=== PATIENT | female | born 1930 | race Caucasian/White ===

== ENCOUNTER 2017-10-05 15:10 | Inpatient (IN) | payer MEDICARE, OTHER ==
[2017-10-05] MEDS: SODIUM CHLORIDE 0.9% FLUSH 10 ML SOL IV SCH ×3 (16:00→23:36)
[2017-10-05] MEDS ORDERED: FUROSEMIDE 20mg SOL IV SCH (19:15)
[2017-10-05 20:16] LABS: ABO B; ANTIBODY SCREEN Negative; RH TYPE Negative; UNIT TYPE O NEGATIVE
[2017-10-05 20:57] LABS: UNIT TYPE O NEGATIVE
[2017-10-05] MEDS: SODIUM CHLORIDE 0.9% 500 ML 500 ML IV SCH (21:30)
[2017-10-05] MEDS ORDERED: APAP/HYDROCODONE 325/5 TAB PO PRN (21:53)
[2017-10-06] MEDS: SODIUM CHLORIDE 0.9% FLUSH 10 ML SOL IV SCH ×4 (02:29→19:14)
[2017-10-06 07:20] LABS: BASOPHILS % (AUTO) 2 % (0-3); EOSINOPHILS % (AUTO) 2 % (0-9); HEMATOCRIT 25 % (35-47); MEAN CORPUSCULAR HGB CONC 27.9 gm/dl (32.0-36.0); MONOCYTES % (AUTO) 11.6 % (0-12); NEUTROPHILS % (AUTO) 67.4 % (37-80)
[2017-10-06 07:26] LABS: ALBUMIN 2.1 gm/dl (3.4-5.0); CALCIUM 7.6 mg/dl (8.5-10.1); MEAN CORPUSCULAR VOLUME 61 fL (81-99); POTASSIUM 4.3 mMol/L (3.5-5.1)
[2017-10-06 07:43] LABS: ANISOCYTOSIS MOD AMT; OVALOCYTES PRESENT
[2017-10-06 07:44] LABS: HYPOCHROMASIA PRESENT
[2017-10-06 10:45] LABS: UNIT TYPE O NEGATIVE
[2017-10-06 10:46] LABS: UNIT TYPE B NEGATIVE
[2017-10-06] MEDS: SODIUM CHLORIDE 0.9% 500 ML 500 ML IV SCH (11:20)
[2017-10-06] MEDS: FUROSEMIDE 20mg SOL IV SCH ×2 (14:02→19:13)
[2017-10-07 07:41] LABS: BASOPHILS % (AUTO) 1 % (0-3); EOSINOPHILS % (AUTO) 2 % (0-9); HEMATOCRIT 30 % (35-47); MEAN CORPUSCULAR HGB CONC 30.5 gm/dl (32.0-36.0); MONOCYTES % (AUTO) 8.2 % (0-12); NEUTROPHILS % (AUTO) 70.8 % (37-80)
[2017-10-07 07:47] LABS: MEAN CORPUSCULAR VOLUME 64 fL (81-99)
[2017-10-07 07:51] LABS: CALCIUM 7.7 mg/dl (8.5-10.1); THYROID STIMULATING HORMONE 1.019 uIU/ml (0.358-3.740)
[2017-10-07 07:52] LABS: POTASSIUM 4.2 mMol/L (3.5-5.1)
[2017-10-07 08:22] LABS: HYPOCHROMASIA MOD AMT
[2017-10-07 08:23] LABS: ACANTHOCYTES PRESENT; ANISOCYTOSIS MOD AMT; OVALOCYTES PRESENT; TARGET CELLS PRESENT; TEAR DROP CELLS PRESENT
[2017-10-07] MEDS ORDERED: DOCUSATE SODIUM 100 MG SGL PO PRN (09:00)
[2017-10-07] MEDS: SODIUM CHLORIDE 0.9% FLUSH 10 ML SOL IV SCH ×3 (12:04→19:54)
[2017-10-08 00:17] VITALS: RESP 20; O2SAT 92
[2017-10-08] MEDS: SODIUM CHLORIDE 0.9% FLUSH 10 ML SOL IV SCH ×4 (03:20→14:57)
[2017-10-08 07:27] LABS: BASOPHILS % (AUTO) 2 % (0-3); EOSINOPHILS % (AUTO) 2 % (0-9); HEMATOCRIT 31 % (35-47); MEAN CORPUSCULAR HGB CONC 30.3 gm/dl (32.0-36.0)
[2017-10-08 07:31] LABS: CALCIUM 7.7 mg/dl (8.5-10.1)
[2017-10-08 07:36] LABS: MEAN CORPUSCULAR VOLUME 65 fL (81-99)
[2017-10-08 07:55] LABS: ANISOCYTOSIS MOD AMT; HYPOCHROMASIA PRESENT; OVALOCYTES PRESENT; TARGET CELLS PRESENT
[2017-10-08] MEDS: SODIUM CHLORIDE 0.9% 500 ML 500 ML IV SCH (08:01)
[2017-10-08 08:11] VITALS: BP 138/68; PULSE 80; TEMP 98.9
[2017-10-08] MEDS ORDERED: INFLUENZA HIGH DOSE VACCINE 0.5 ML SUS IM ONE (14:14)
== END 2017-10-08 15:30 | disposition home or self-care (01) | DRG 812 ==
LOC: ACUTE CARE 15:34
PROVIDERS: ADMIT Family Medicine; ATTEND Family Medicine
PROC: 30233N1 Transfusion of Nonautologous Red Blood Cells into Peripheral Vein, Percutaneous Approach (ICD-10-PCS; principal; 2017-10-06)
PROC: F01ZDFZ Gait and/or Balance Assessment using Assistive, Adaptive, Supportive or Protective Equipment (ICD-10-PCS; 2017-10-07)
PROC: F01ZCZZ Transfer Assessment (ICD-10-PCS; 2017-10-07)
PROC: F01ZBZZ Bed Mobility Assessment (ICD-10-PCS; 2017-10-07)
PROC: F02Z1ZZ Dressing Assessment (ICD-10-PCS; 2017-10-07)
PROC: F02Z0ZZ Bathing/Showering Assessment (ICD-10-PCS; 2017-10-07)
PROC: F02Z3ZZ Grooming/Personal Hygiene Assessment (ICD-10-PCS; 2017-10-07)
DX: D64.9 Anemia, unspecified (principal); R06.02 Shortness of breath; R93.8 Abnormal findings on diagnostic imaging of other specified body structures
CPT/HCPCS: 71260; 74177; 80048; 80053; 82272; 84443; 85018; 85025; 86850; 86900; 86901; 86920; 90662; 93306; 99070; J1940; Q9967; G0008

== ENCOUNTER 2017-10-19 13:49 | Outpatient (CLI) | payer MEDICARE, OTHER ==
[2017-10-08 00:17] VITALS: O2SAT 92
== END 2017-10-19 13:50 | disposition home or self-care (01) | DRG 554 ==
LOC: CONVCARE 13:49
PROVIDERS: ATTEND Orthopaedic Surgery
DX: M17.0 Bilateral primary osteoarthritis of knee (principal); M25.561 Pain in right knee; M25.562 Pain in left knee
CPT/HCPCS: 73562

== ENCOUNTER 2018-07-05 11:22 | Inpatient (IN) | payer MEDICARE, OTHER ==
[2018-07-05] MEDS ORDERED: VANCOMYCIN HCL 500 MG PDS 1,000 MG in SODIUM CHLORIDE 0.9% 250 ML 250 ML IV ONE (12:04)
[2018-07-05 12:25] LABS: BASOPHILS % (AUTO) 1 % (0-3); EOSINOPHILS % (AUTO) 1 % (0-9); HEMATOCRIT 32 % (35-47); HEMOGLOBIN 10.4 gm/dl (12.0-15.5); LYMPHOCYTES % (AUTO) 8.2 % (10-50); MEAN CORPUSCULAR HEMOGLOBIN 27.9 pg (27.0-32.0); MEAN CORPUSCULAR HGB CONC 32.6 gm/dl (32.0-36.0); MEAN CORPUSCULAR VOLUME 86 fL (81-99); MONOCYTES % (AUTO) 8.6 % (0-12); NEUTROPHILS % (AUTO) 81.3 % (37-80)
[2018-07-05 12:29] LABS: LACTIC ACID 1.6 mMol/L (0.0-2.0)
[2018-07-05 12:39] LABS: ALBUMIN 2.2 gm/dl (3.4-5.0); ALKALINE PHOSPHATASE 150 IU/L (46-116); ALT 38 IU/L (14-63); AST 29 IU/L (15-37); BILIRUBIN,TOTAL 0.5 mg/dl (0.2-1.0); BLOOD UREA NITROGEN 19 mg/dl (7-18); CALCIUM 8.3 mg/dl (8.5-10.1); CARBON DIOXIDE 26.7 mEq/L (21-32); CHLORIDE 100 mMol/L (98-107); CREATININE 1.07 mg/dl (0.60-1.00); GLUCOSE 123 mg/dl (74-106); POTASSIUM 3.1 mMol/L (3.5-5.1); SODIUM 135 mMol/L (136-145); TOTAL PROTEIN 6.7 gm/dl (6.4-8.2); TROP I < 0.017 ng/ml (0.000-0.056)
[2018-07-05] MEDS: SODIUM CHLORIDE 0.9% 1000ML 1,000 ML IV SCH (13:37)
[2018-07-05] MEDS ORDERED: VANCOMYCIN HYDROCHLORIDE 500 MG PDS IV ONE (13:38)
[2018-07-05] MEDS ORDERED: POTASSIUM CHLORIDE 10 MEQ TER PO ONE (15:31)
[2018-07-05] MEDS ORDERED: POTASSIUM CHLORIDE 10 MEQ TER ONE (16:29)
[2018-07-05] MEDS: ACETAMINOPHEN 325 MG PO PRN (17:18)
[2018-07-05] MEDS: KETOROLAC TROMETHAMINE 30 MG/ML SOL IV PRN (17:19)
[2018-07-05] MEDS ORDERED: ACETAMINOPHEN 500 MG 500 MG TAB PO PRN (17:43)
[2018-07-05] MEDS ORDERED: POTASSIUM CHLORIDE 10 MEQ TER PO SCH ×2 (17:45→21:00)
[2018-07-05] MEDS ORDERED: CEFTRIAXONE 1 GM PDS ONE (17:48)
[2018-07-05] MEDS ORDERED: SODIUM CHLORIDE 0.9% 50 ML 50 ML IV ONE (17:48)
[2018-07-05] MEDS ORDERED: ONDANSETRON HCL 4 MG/2 ML SOL IV PRN (17:56)
[2018-07-05] MEDS ORDERED: MORPHINE SULFATE 10 MG/ML SOL IV PRN (17:56)
[2018-07-05] MEDS: CEFTRIAXONE 1 GM PDS 1 GM in SODIUM CHLORIDE 0.9% 50 ML 50 ML IV SCH (18:00)
[2018-07-05] MEDS: OXYCODONE HYDROCHLORIDE 5 MG TAB PO PRN (18:07)
[2018-07-05] MEDS: ENOXAPARIN 30 MG SOL SC SCH (18:10)
[2018-07-05] MEDS ORDERED: OMEPRAZOLE 40 MG ECC PO SCH (21:00)
[2018-07-05] MEDS: ASPIRIN 325 MG TAB PO SCH (21:35)
[2018-07-05] MEDS: FERROUS GLUCONATE 324 MG TABLET PO SCH (21:35)
[2018-07-05] MEDS: SENNOSIDES A AND B 8.6 MG TAB PO SCH (21:36)
[2018-07-06] MEDS ORDERED: POTASSIUM CHLORIDE 10 MEQ TER PO SCH
[2018-07-06] MEDS: SODIUM CHLORIDE 0.9% 1000ML 1,000 ML IV SCH ×3 (04:20→16:10)
[2018-07-06] MEDS ORDERED: SODIUM CHLORIDE 0.9% 50 ML 50 ML IV ONE ×2 (05:59→17:04)
[2018-07-06] MEDS ORDERED: CEFTRIAXONE 1 GM PDS ONE ×2 (05:59→17:04)
[2018-07-06] MEDS: CEFTRIAXONE 1 GM PDS 1 GM in SODIUM CHLORIDE 0.9% 50 ML 50 ML IV SCH ×2 (06:05→18:07)
[2018-07-06] MEDS: OXYCODONE HYDROCHLORIDE 5 MG TAB PO PRN ×4 (06:57→22:53)
[2018-07-06 07:16] LABS: CARBON DIOXIDE 23.1 mEq/L (21-32); CREATININE 0.8 mg/dl (0.60-1.00); POTASSIUM 4.3 mMol/L (3.5-5.1)
[2018-07-06 07:23] LABS: BASOPHILS % (AUTO) 0 % (0-3); EOSINOPHILS % (AUTO) 1 % (0-9); HEMATOCRIT 31 % (35-47); HEMOGLOBIN 9.7 gm/dl (12.0-15.5); LYMPHOCYTES % (AUTO) 9.9 % (10-50); MEAN CORPUSCULAR HEMOGLOBIN 26.8 pg (27.0-32.0); MEAN CORPUSCULAR HGB CONC 31.2 gm/dl (32.0-36.0); MEAN CORPUSCULAR VOLUME 86 fL (81-99); MONOCYTES % (AUTO) 9.8 % (0-12); NEUTROPHILS % (AUTO) 78.8 % (37-80)
[2018-07-06] MEDS: LEVOTHYROXINE SODIUM 112 MCG TAB PO SCH (08:35)
[2018-07-06] MEDS ORDERED: SODIUM CHLORIDE 0.9% 250 ML 250 ML IV ONE ×2 (08:57→21:12)
[2018-07-06] MEDS ORDERED: VANCOMYCIN HYDROCHLORIDE 500 MG PDS IV ONE ×2 (08:57→21:12)
[2018-07-06] MEDS ORDERED: Non-Formulary Medication MISC (Levothyroxine Sodium 112 Mcg 112 MCG) PO SCH (09:00)
[2018-07-06] MEDS ORDERED: AMLODIPINE 5 MG TAB PO SCH (09:00)
[2018-07-06] MEDS: VANCOMYCIN HCL 500 MG PDS 1,000 MG in SODIUM CHLORIDE 0.9% 250 ML 250 ML IV SCH ×2 (09:05→21:18)
[2018-07-06] MEDS: ASPIRIN 325 MG TAB PO SCH ×2 (09:11→21:39)
[2018-07-06] MEDS: PANTOPRAZOLE SODIUM 40 MG ECT PO SCH (09:12)
[2018-07-06] MEDS: FERROUS GLUCONATE 324 MG TABLET PO SCH ×2 (09:12→21:39)
[2018-07-06] MEDS: SENNOSIDES A AND B 8.6 MG TAB PO SCH ×2 (09:13→21:40)
[2018-07-06] MEDS: ACETAMINOPHEN 325 MG PO PRN (15:51)
[2018-07-06] MEDS: ENOXAPARIN 30 MG SOL SC SCH (18:09)
[2018-07-06] MEDS: KETOROLAC TROMETHAMINE 30 MG/ML SOL IV PRN (19:53)
[2018-07-06] MEDS: SODIUM CHLORIDE 0.9% FLUSH 10 ML SOL IV SCH ×2 (19:56→21:22)
[2018-07-07] MEDS ORDERED: SODIUM CHLORIDE 0.9% 50 ML 50 ML IV ONE ×2 (04:49→18:14)
[2018-07-07] MEDS ORDERED: CEFTRIAXONE 1 GM PDS ONE ×2 (04:49→18:14)
[2018-07-07] MEDS: CEFTRIAXONE 1 GM PDS 1 GM in SODIUM CHLORIDE 0.9% 50 ML 50 ML IV SCH ×2 (05:41→18:45)
[2018-07-07] MEDS: SODIUM CHLORIDE 0.9% FLUSH 10 ML SOL IV SCH ×5 (05:42→20:35)
[2018-07-07] MEDS: LEVOTHYROXINE SODIUM 112 MCG TAB PO SCH (06:04)
[2018-07-07] MEDS: OXYCODONE HYDROCHLORIDE 5 MG TAB PO PRN ×4 (06:04→21:06)
[2018-07-07] MEDS ORDERED: VANCOMYCIN HYDROCHLORIDE 500 MG PDS IV ONE ×2 (07:50→20:09)
[2018-07-07] MEDS ORDERED: SODIUM CHLORIDE 0.9% 250 ML 250 ML IV ONE ×2 (07:51→20:09)
[2018-07-07] MEDS: VANCOMYCIN HCL 500 MG PDS 1,000 MG in SODIUM CHLORIDE 0.9% 250 ML 250 ML IV SCH ×2 (08:12→20:36)
[2018-07-07] MEDS: ASPIRIN 325 MG TAB PO SCH ×2 (08:22→20:37)
[2018-07-07] MEDS: FERROUS GLUCONATE 324 MG TABLET PO SCH ×2 (08:22→20:36)
[2018-07-07] MEDS: PANTOPRAZOLE SODIUM 40 MG ECT PO SCH (08:22)
[2018-07-07] MEDS: SENNOSIDES A AND B 8.6 MG TAB PO SCH ×2 (08:23→20:37)
[2018-07-07] MEDS: AMLODIPINE 5 MG TAB PO SCH (09:45)
[2018-07-07] MEDS: GABAPENTIN 100 MG CAP PO SCH ×2 (10:52→20:36)
[2018-07-07] MEDS: ACETAMINOPHEN 325 MG PO PRN (16:14)
[2018-07-07] MEDS: ENOXAPARIN 30 MG SOL SC SCH (18:45)
[2018-07-08] MEDS: OXYCODONE HYDROCHLORIDE 5 MG TAB PO PRN (03:56)
[2018-07-08] MEDS: SODIUM CHLORIDE 0.9% FLUSH 10 ML SOL IV SCH ×3 (04:03→21:12)
[2018-07-08] MEDS ORDERED: SODIUM CHLORIDE 0.9% 50 ML 50 ML IV ONE (06:23)
[2018-07-08] MEDS ORDERED: CEFTRIAXONE 1 GM PDS ONE (06:23)
[2018-07-08] MEDS: LEVOTHYROXINE SODIUM 112 MCG TAB PO SCH (06:28)
[2018-07-08] MEDS: CEFTRIAXONE 1 GM PDS 1 GM in SODIUM CHLORIDE 0.9% 50 ML 50 ML IV SCH (06:28)
[2018-07-08 07:17] LABS: BASOPHILS % (AUTO) 1 % (0-3); EOSINOPHILS % (AUTO) 3 % (0-9); HEMATOCRIT 29 % (35-47); HEMOGLOBIN 9.2 gm/dl (12.0-15.5); LYMPHOCYTES % (AUTO) 13.9 % (10-50); MEAN CORPUSCULAR HEMOGLOBIN 27.3 pg (27.0-32.0); MEAN CORPUSCULAR HGB CONC 31.5 gm/dl (32.0-36.0); MEAN CORPUSCULAR VOLUME 87 fL (81-99); NEUTROPHILS % (AUTO) 74.8 % (37-80)
[2018-07-08 07:24] LABS: CARBON DIOXIDE 24.8 mEq/L (21-32); CREATININE 0.69 mg/dl (0.60-1.00); POTASSIUM 3.9 mMol/L (3.5-5.1)
[2018-07-08] MEDS ORDERED: VANCOMYCIN HYDROCHLORIDE 500 MG PDS IV ONE (08:25)
[2018-07-08] MEDS ORDERED: SODIUM CHLORIDE 0.9% 250 ML 250 ML IV ONE (08:25)
[2018-07-08] MEDS: FUROSEMIDE 40 MG SOL IV SCH ×4 (09:45→21:12)
[2018-07-08] MEDS: ASPIRIN 325 MG TAB PO SCH ×2 (09:49→21:14)
[2018-07-08] MEDS: OXYCODONE HYDROCHLORIDE 5 MG TAB PO SCH ×3 (09:49→21:13)
[2018-07-08] MEDS: ACETAMINOPHEN 500 MG 500 MG TAB PO SCH ×3 (09:49→21:15)
[2018-07-08] MEDS: DOXYCYCLINE 100 MG TAB PO SCH ×2 (09:50→21:14)
[2018-07-08] MEDS: CEFPROZIL 250 MG/5 ML SUSP.RECON PO SCH ×2 (09:51→21:13)
[2018-07-08] MEDS: FERROUS GLUCONATE 324 MG TABLET PO SCH ×2 (09:51→21:14)
[2018-07-08] MEDS: GABAPENTIN 100 MG CAP PO SCH ×2 (09:52→21:13)
[2018-07-08] MEDS: AMLODIPINE 5 MG TAB PO SCH (09:52)
[2018-07-08] MEDS: PANTOPRAZOLE SODIUM 40 MG ECT PO SCH (09:52)
[2018-07-08] MEDS: SENNOSIDES A AND B 8.6 MG TAB PO SCH ×2 (09:53→21:15)
[2018-07-08] MEDS: VANCOMYCIN HCL 500 MG PDS 1,000 MG in SODIUM CHLORIDE 0.9% 250 ML 250 ML IV SCH (10:11)
[2018-07-08] MEDS: ENOXAPARIN 30 MG SOL SC SCH (17:56)
[2018-07-08 19:55] VITALS: O2SAT 93
[2018-07-09] MEDS: LEVOTHYROXINE SODIUM 112 MCG TAB PO SCH (06:19)
[2018-07-09] MEDS: SODIUM CHLORIDE 0.9% FLUSH 10 ML SOL IV SCH ×2 (06:19→14:29)
[2018-07-09 07:19] LABS: BASOPHILS % (AUTO) 1 % (0-3); EOSINOPHILS % (AUTO) 2 % (0-9); HEMATOCRIT 28 % (35-47); LYMPHOCYTES % (AUTO) 11.3 % (10-50); MEAN CORPUSCULAR HEMOGLOBIN 27.5 pg (27.0-32.0); MEAN CORPUSCULAR HGB CONC 32.2 gm/dl (32.0-36.0); MEAN CORPUSCULAR VOLUME 86 fL (81-99); NEUTROPHILS % (AUTO) 78.7 % (37-80)
[2018-07-09 07:20] LABS: CARBON DIOXIDE 28.4 mEq/L (21-32); CREATININE 0.78 mg/dl (0.60-1.00); POTASSIUM 3.5 mMol/L (3.5-5.1)
[2018-07-09 09:10] VITALS: BP 110/63; PULSE 68; RESP 14; TEMP 98.8
[2018-07-09] MEDS: FUROSEMIDE 40 MG SOL IV SCH ×2 (09:18→14:29)
[2018-07-09] MEDS: GABAPENTIN 100 MG CAP PO SCH (09:18)
[2018-07-09] MEDS: DOXYCYCLINE 100 MG TAB PO SCH (09:18)
[2018-07-09] MEDS: ASPIRIN 325 MG TAB PO SCH (09:18)
[2018-07-09] MEDS: FERROUS GLUCONATE 324 MG TABLET PO SCH (09:18)
[2018-07-09] MEDS: SENNOSIDES A AND B 8.6 MG TAB PO SCH (09:19)
[2018-07-09] MEDS: ACETAMINOPHEN 500 MG 500 MG TAB PO SCH ×2 (09:19→14:29)
[2018-07-09] MEDS: PANTOPRAZOLE SODIUM 40 MG ECT PO SCH (09:19)
[2018-07-09] MEDS: AMLODIPINE 5 MG TAB PO SCH (09:19)
[2018-07-09] MEDS: CEFPROZIL 250 MG/5 ML SUSP.RECON PO SCH (09:19)
[2018-07-09] MEDS: OXYCODONE HYDROCHLORIDE 5 MG TAB PO SCH ×2 (09:21→14:29)
== END 2018-07-09 14:20 | disposition home or self-care (01) | DRG 603 ==
LOC: ED 11:22 → ACUTE CARE 16:15 → UNDOADMIN 16:15 → ACUTE CARE 16:50
PROVIDERS: ADMIT Internal Medicine; ATTEND Internal Medicine
PROC: F01L5YZ Range of Motion and Joint Integrity Assessment of Musculoskeletal System - Lower Back / Lower Extremity using Other Equipment (ICD-10-PCS; principal; 2018-07-06)
PROC: F01ZBZZ Bed Mobility Assessment (ICD-10-PCS; 2018-07-06)
DX: L03.115 Cellulitis of right lower limb (principal); E87.6 Hypokalemia; R60.0 Localized edema; T81.89XA Other complications of procedures, not elsewhere classified, initial encounter; Z96.651 Presence of right artificial knee joint; D64.9 Anemia, unspecified; I10 Essential (primary) hypertension; M79.661 Pain in right lower leg
CPT/HCPCS: 36415; 73560; 80048; 80053; 83880; 84484; 85025; 87040; 93005; 96365; 96366; 99070; 99283; 99291; J0696; J1885; J1940; J2270; J2405; J3370; A9270-GY; J1650